=== PATIENT | male | born 1985 | race Caucasian/White ===

== ENCOUNTER 2017-03-10 17:32 | Emergency (ER) | payer OTHER ==
[~2017-03-10] VITALS: Ht 177.8 cm; Wt 85.8 kg
[2017-03-10] MEDS ORDERED: ZYRT10CA PO (17:44)
--- NOTE | 2017-03-10 19:10 | REPUSA ---
Clinical history: Pain. Findings: Real-time ultrasound imaging of the testicles and scrotum was performed. The right testicle measures 4.2 x 2.4 x 3.5 cm. The left testicle measures 4.1 x 2.1 x 3.5 cm. The testicles demonstrat e normal echo texture and echogenicity. Normal color Doppler flow and arterial waveforms are seen fadia aterally. There is a small right-sided hydrocele seen. Impression: Unremarkable ultrasound examination of the testicles. Small right-sided hydrocele.
[2017-03-10] MEDS ORDERED: CIPR-249 PO (19:44)
[2017-03-10] MEDS ORDERED: IBUP-1022 PO (19:44)
[2017-03-10] MEDS ORDERED: cefTRIAXone SOD 250 MG VIAL (J0696) IM ONE (19:45)
[2017-03-10] MEDS ORDERED: AZITHROMYCIN 250 MG TAB PO ONE (19:45)
[2017-03-10 19:50] VITALS: BP 138/76
== END 2017-03-10 20:10 | disposition home or self-care (01) ==
LOC: M ED 17:32
DX: N43.2 Other hydrocele (principal); N45.2 Orchitis
CPT/HCPCS: 76870; 81001; 87086; 87491; 87591; 93976; 96372; 99282; J0696